=== PATIENT | male | born 2000 | race Caucasian/White ===

== ENCOUNTER 2023-10-22 12:37 | Emergency (ER) | payer SELFPAY ==
[2023-10-22 12:42] VITALS: BP 133/77; PULSE 111; RESP 18; TEMP 36.8; O2SAT 96
--- NOTE | 2023-10-22 13:14 | XRR_ITS ---
PROCEDURE INFORMATION: Exam: XR Left Shoulder Exam date and time: 10/22/2023 2:03 PM Age: 23 years old Clinical indication: Injury or trauma; Fall; Blunt trauma (contusions or hematomas); Shoulder; Left; Additional info: Shoulder pain TECHNIQUE: Imaging protocol: Radiologic exam of the left shoulder. Views: 2 or more views. COMPARISON: No relevant prior studies available. FINDINGS: Bones/joints: Normal. Soft tissues: Normal. XR/XR shoulder LT min 2V* [id number] IMPRESSION: No acute findings.
--- NOTE | 2023-10-22 13:50 | W.ED.EXTPRO ---
HPI - Extremity Problem General: Chief complaint: Extremity Injury, Upper Stated complaint: Left shoulder injury Time Seen by Provider: 10/22/23 13:44 Source: patient Mode of arrival: ambulatory History of Present Illness: 23-year-old male presents to the emergency room complaining of left shoulder pain. He says he has had multiple dislocations in the past he felt like it popped out and now is back in place again he has some discomfort in the shoulder and has pain with range of motion. No trauma MD Complaint: joint pain Onset (ago): minute(s) Location: left Relieving factors: nothing Exacerbating factors: nothing Associated symptoms: Deny arthralgias, chest pain, fever(s), myalgias, rash or short of breath Review of Systems Const: Denies: fever(s) or chills Card: Denies: chest pain Resp: Denies: dyspnea GI: Denies: abdominal pain : Denies: dysuria, urinary frequency or urinary urgency Musc: Reports: joint pain; Denies: neck pain, back pain or joint swelling Skin/Breast: Denies: rash Physical Exam Const: COMMON NORMALS: no acute distress GENERAL APPEARANCE: cooperative and comfortable ORIENTATION/CONSCIOUSNESS: Yes awake, Yes oriented to person, Yes oriented to place and Yes oriented to time HENMT: COMMON NORMALS: normocephalic, atraumatic and hearing grossly normal bilaterally HEAD & SCALP: normocephalic and atraumatic Resp: COMMON NORMALS: normal respiratory effort, No retractions, No use of accessory muscles and clear to auscultation bilaterally AUSCULTATION: clear to auscultation bilaterally Cardio: COMMON NORMALS: regular rate, regular rhythm and No murmurs present (Cardio) RATE: regular rate RHYTHM: regular rhythm Extremity: COMMON NORMALS: normal to inspection, capillary refill normal, no clubbing, cyanosis or edema, no calf tenderness and no pedal edema OTHER: Pain in the left shoulder with decreased range of motion due to pain difficult to really assess at this time. Neuro: SENSORIUM/ORIENTATION: Yes oriented to person, Yes oriented to place and Yes oriented to time Skin: COMMON NORMALS: no rashes or lesions noted GENERAL SKIN EXAM: no rashes or lesions noted Course Vital Signs: Vital signs: Vital Signs Temperature 98.3 F 10/22/23 12:42 Pulse Rate 111 H 10/22/23 12:42 Respiratory Rate 18 05/19/24 12:42 Blood Pressure 133/77 10/22/23 12:42 Pulse Oximetry 96 10/22/23 12:42 Oxygen Delivery Me thod Room Air 10/22/23 12:42 MDM - Extremity (Nontraumatic) Medical Decision Making No acute fractures on x-ray. Will place patient in a sling limit use of the left arm. Refer to orthopedics diclofenac as needed. Medical Records I reviewed the patient's medical records. Lab Data I reviewed the patient's lab results. Radiology Impressions Shoulder X-Ray 10/22/23 13:14 IMPRESSION: No acute findings. All radiology interpretation(s) finalized by discharge Discharge Plan Discharge Patient Disposition: Home Clinical Impression: Left shoulder pain Condition: Stable Prescriptions: New diclofenac sodium 75 mg tablet,delayed release (DR/EC) 75 mg PO Q12H PRN (Reason: pain) Qty: 20 0RF Discharge Orders: Discharge ED (Routine); Ordered 10/22/23 Ordered By: John Powers Discharge Diet: Usual diet Discharge Activity: Limit activity as instructed Patient Instructions: Opioid Safety, Pain Management Activity Restrictions/Additional Instructions: Thank you for choosing [facility] for your healthcare needs today. Please realize this is an emergency room and that we are providing you with a medical screening exam and this may not be complete and all inclusive of all the testing and or work up that you may need to determine your ailment or severity of your illness. It is very important that you follow up as instructed or that you return to the Emergency Department should you have concerns or if your condition changes or worsens in any way. You were seen in the emergency room with complaints of left shoulder pain. X-ray did not show any significant abnormality. You were given a sling and diclofenac to use as needed case management make arrangements for you to have follow-up with orthopedics in the clinic. Avoid heavy lifting with the left arm and do not reach above shoulder level. Stand Alone Forms: Work/School Release Coding Level of Care Code ED [employer] for [employer]
[2023-10-22] MEDS: HYDROcodone-acetaminophen 5-325 mg Tablet 1 TAB PO (14:40)
--- NOTE | 2023-10-22 18:03 | DCPLANNER ---
Sent follow up request to the ortho clinic 10/22/23 2534
== END 2023-10-22 14:44 | disposition home or self-care (01) ==
PROVIDERS: Emergency Provider Family Medicine
DX: M25.512 Pain in left shoulder (principal)
CPT/HCPCS: 73030; 99283